=== PATIENT | male | born 1960 | race Caucasian/White ===

== ENCOUNTER 2023-10-28 01:27 | Inpatient (IN) ==
[2023-10-28] MEDS ORDERED: Lactated Ringers 1000 ml BAG 1,000 ML IV ONE ×3 (02:46→08:14)
[2023-10-28] MEDS ORDERED: Cefepime 2 GM in Dextrose 2 GM/50 ML BAG IV ONE (02:54)
[2023-10-28 03:05] LABS: Activated Partial Thrombo Time 25.4 seconds (26.0-38.0); INR 1.14 (0.83-1.13)
[2023-10-28 03:07] LABS: Urine Appearance Cloudy; Urine Bilirubin Negative (Negative); Urine Blood 3+ (Negative); Urine Color Yellow; Urine Glucose 3+(>=500 mg/dL) (Negative); Urine Ketones Trace (Negative); Urine Nitrite Negative (Negative); Urine Protein 2+(100 mg/dL) (Negative); Urine Specific Gravity 1.027 (1.002-1.030); Urine Urobilinogen Negative (Negative)
[2023-10-28 03:09] LABS: Urine Bacteria 1+ (Absent); Urine Red Blood Cell 3+(>10/hpf) (Absent); Urine White Blood Cell 2+(11-20/hpf) (Absent)
[2023-10-28 03:11] LABS: ABS Lymphocytes 0.1 10^3/uL (1.0-4.8); ABS Neutrophils 3.4 10^3/uL (1.5-7.6); ABS Nucleated RBC 0.01 10^3/ul; Eosinophil % 0.5 %; Hematocrit 38.1 % (38-53); Hemoglobin 13.1 g/dL (13.2-16.3); Lymphocyte % 3.4 %; Mean Corpuscular Hemoglobin 29.5 pg (27-33); Mean Corpuscular Hgb Conc 34.4 g/dL (31-36); Mean Corpuscular Volume 85.8 fL (80-97); Mean Platelet Volume 7.7 fL (7.5-11.2); Nucleated Red Blood Cells % 0.2 %/100WBC (0.0-0.8); Platelet Count 138 10^3/uL (150-450); Red Blood Count 4.44 10^6/uL (4.06-5.63); Red Cell Distribution Width 13.2 % (12-17); White Blood Count 3.6 10^3/uL (3.6-10.2)
[2023-10-28 03:13] LABS: Albumin/Globulin Ratio 1.7 (1-3); C Reactive Protein 37.88 mg/L (<8.01); Calcium 8.5 mg/dL (8.6-10.3); Creatinine, Serum 0.88 mg/dL (0.67-1.17); Globulin 2.3 g/dL (2-4); Potassium 2.8 mmol/L (3.5-5.0); Total Bilirubin 0.7 mg/dL (0.2-1.0); Total Protein 6.3 g/dL (6.4-8.9)
[2023-10-28] MEDS: KCL 20 MEQ/100 ML IVPREMIX 20 MEQ/100 ML BAG IV SCH ×2 (03:57→06:19)
[2023-10-28] MEDS ORDERED: Polyethylene Glycol 3350 17 GM PACKET PO PRN (04:16)
[2023-10-28] MEDS ORDERED: Senna TAB 8.6 mg TAB PO PRN (04:16)
[2023-10-28] MEDS ORDERED: Norepinephrine 4 MG/250mL D5W 4,000 MCG/250 ML BAG IV SCH (05:00)
[2023-10-28] MEDS ORDERED: Enoxaparin 40 MG/0.4 ML SYR SUBCUT SCH (06:00)
[2023-10-28] MEDS ORDERED: Dextrose 50% Syringe 50 ml 25 GM/50 ML SYRINGE IV PUSH PRN (07:05)
[2023-10-28] MEDS: PTO:ICOSAPENT ETHYL 1 GM CAPSULE (NF) PO SCH ×2 (08:20→17:06)
[2023-10-28] MEDS: ABIRATERONE 250 MG PO SCH (08:41)
[2023-10-28] MEDS: CMCS:Mirabegron 25 mg ER TAB (NF) PO SCH (09:00)
[2023-10-28] MEDS: Cefepime 2 GM in Dextrose 2 GM/50 ML BAG IV SCH (14:46)
[2023-10-28] MEDS ORDERED: Hemorrhoidal OINT 1 TUBE PR PRN (23:48)
[2023-10-29] MEDS: Cefepime 2 GM in Dextrose 2 GM/50 ML BAG IV SCH (02:50)
[2023-10-29 07:38] LABS: Calcium 8.2 mg/dL (8.6-10.3); Creatinine, Serum 0.57 mg/dL (0.67-1.17); Magnesium 1.7 mg/dL (1.9-2.7); Potassium 2.8 mmol/L (3.5-5.0); eGFR CKD-EPI 109.5 (>60)
[2023-10-29 07:48] LABS: ABS Eosinophils 0.1 10^3/uL (0.0-0.5); ABS Lymphocytes 0.4 10^3/uL (1.0-4.8); ABS Monocytes 0.4 10^3/uL (0.0-1.1); ABS Neutrophils 4.6 10^3/uL (1.5-7.6); Eosinophil % 2.2 %; Hematocrit 34.9 % (38-53); Lymphocyte % 6.7 %; Mean Corpuscular Hemoglobin 29.7 pg (27-33); Mean Corpuscular Hgb Conc 34.3 g/dL (31-36); Mean Corpuscular Volume 86.6 fL (80-97); Red Blood Count 4.03 10^6/uL (4.06-5.63); White Blood Count 5.5 10^3/uL (3.6-10.2)
[2023-10-29] MEDS ORDERED: Potassium Chlor 20 meq TAB.ER PO ONE (08:12)
[2023-10-29] MEDS: PTO:ICOSAPENT ETHYL 1 GM CAPSULE (NF) PO SCH (08:16)
[2023-10-29] MEDS: ABIRATERONE 250 MG PO SCH (08:16)
[2023-10-29 08:17] LABS: Mean Platelet Volume 7.8 fL (7.5-11.2); Platelet Count 91 10^3/uL (150-450)
[2023-10-29] MEDS: KCL 20 MEQ/100 ML IVPREMIX 20 MEQ/100 ML BAG IV SCH ×3 (09:50→14:01)
[2023-10-29] MEDS: CMCS:Mirabegron 25 mg ER TAB (NF) PO SCH (09:54)
[2023-10-29 14:44] VITALS: BP 145/95
[2023-10-29] MEDS ORDERED: cefTRIAXone 2 gm/50 mL D5W 2 GM/50 ML BAG IV SCH (15:00)
[2023-10-29 15:29] LABS: Calcium 8.4 mg/dL (8.6-10.3); Creatinine, Serum 0.57 mg/dL (0.67-1.17); Potassium 3.4 mmol/L (3.5-5.0); eGFR CKD-EPI 109.5 (>60)
== END 2023-10-29 16:30 | disposition home or self-care (01) | DRG 720 ==
LOC: ED 01:27 → EDHOLD 04:16 → MED 14:29
PROVIDERS: ADMIT Internal Medicine; ATTEND Hospitalist